=== PATIENT | male | born 1965 | race African-American/Black ===

== ENCOUNTER 2023-02-26 21:20 | Inpatient (IN) | payer OTHER ==
[~2023-02-26] VITALS: Ht 177.8 cm; Wt 81.2 kg
[2023-02-26 22:05] LABS: Basophils # (auto) 0 10 ^3/uL (0-0.2); Basophils % (auto) 0.5 % (0.0-2.0); Eosinophils # (auto) 0.2 10 ^3/uL (0-0.8); Lymphocytes # (auto) 1.4 10 ^3/uL (0.4-5.4); Mean Corpuscular Hemoglobin 26.6 pg (28.0-32.0); Neutrophils # (auto) 3.9 10 ^3/uL (1.6-8.6); Nucleated Red Blood Cells % 0.2 %
[2023-02-26 22:07] LABS: Eosinophils % (auto) 3.8 % (0.0-7.0); Hematocrit 44.2 % (41.0-53.0); Hemoglobin 14.3 g/dL (13.5-17.5); Lymphocytes % (auto) 22.1 % (10.0-50.0); Mean Corpuscular Hgb Conc. 32.4 g/dL (32.0-36.0); Mean Corpuscular Volume 82.2 fL (80.0-100.0); Monocytes # (auto) 0.8 10 ^3/uL (0-1.3); Monocytes % (auto) 12.1 % (0.0-12.0); Neutrophils % (auto) 61.5 % (37.0-80.0); Red Blood Cells 5.38 10^6/uL (4.5-5.90); White Blood Cell 6.4 10^3/uL (4.4-10.8)
[2023-02-26 22:12] LABS: INR 1.1 (0.9-1.15); Partial Thromboplastin Time 28.2 SEC (24.5-34.5); Prothrombin Time 11.5 sec (9.3-11.8)
[2023-02-26] MEDS ORDERED: MORPHINE SULFATE 4 MG/ML SYR/VIAL IV ONE (22:30)
[2023-02-26] MEDS ORDERED: ONDANSETRON HCL 4 MG/2 ML VIAL IV ONE (22:30)
[2023-02-26 23:12] LABS: Urine Bacteria NONE SEEN /hpf (None Seen); Urine Blood TRACE /uL (Negative); Urine Clarity Clear (Clear); Urine Color Yellow (Yellow); Urine Protein, UAD 1+ (Negative); Urine Specific Gravity 1.017 (1.001-1.035); Urine Urobilinogen Normal (Negative); Urine WBC <1 /hpf (0 - 3)
[2023-02-27] MEDS ORDERED: hydrALAZINE HCL 20 MG/ML VL IV ONE
[2023-02-27] MEDS ORDERED: MORPHINE SULFATE 4 MG/ML SYR/VIAL IV ONE
[2023-02-27] MEDS ORDERED: HEPARIN SODIUM (PORCINE) 5000 UNITS/ML 1ML VIAL IV ONE ×2 (03:30)
[2023-02-27] MEDS ORDERED: ASPirin 325 MG TAB PO ONE (03:30)
[2023-02-27] MEDS ORDERED: METOPROLOL TARTRATE 1MG/1ML-5ML VIAL IV ONE (03:30)
[2023-02-27] MEDS ORDERED: HEPARIN DRIP/D5W 100UNITS/ML 250 ML IV SCH (03:30)
[2023-02-27 03:45] LABS: Alanine Aminotransferase 25 U/L (7-40); Albumin 4.4 g/dL (3.2-4.8); Alkaline Phosphatase 72 U/L (46-116); Anion Gap 16 (5-15); Aspartate Aminotransferase 34 U/L (13-40); BUN/Creatinine Ratio 15.9 (10.0-20.0); Bilirubin, Total 0.3 mg/dL (0.2-1.0); Blood Urea Nitrogen 37 mg/dL (9-23); Calcium 9.9 mg/dL (8.7-10.4); Carbon Dioxide 15 mmol/L (20-30); Chloride 108 mmol/L (98-107); Glucose 99 mg/dL (74-106); Sodium 139 mmol/L (136-145); Total Protein 8.7 g/dL (5.7-8.2)
[2023-02-27] MEDS ORDERED: ONDANSETRON HCL 4 MG/2 ML VIAL IV PRN (03:49)
[2023-02-27 04:04] LABS: Eosinophils # (auto) 0.2 10 ^3/uL (0-0.8); Hemoglobin 12.8 g/dL (13.5-17.5); Lymphocytes # (auto) 1.4 10 ^3/uL (0.4-5.4); Mean Corpuscular Volume 81.2 fL (80.0-100.0); Neutrophils # (auto) 3.1 10 ^3/uL (1.6-8.6); Red Cell Distribution Width 13.7 % (11.8-14.3)
[2023-02-27 04:10] LABS: Basophils # (auto) 0 10 ^3/uL (0-0.2); Basophils % (auto) 0.8 % (0.0-2.0); Eosinophils % (auto) 4.2 % (0.0-7.0); Hematocrit 38.5 % (41.0-53.0); Lymphocytes % (auto) 26.2 % (10.0-50.0); Mean Corpuscular Hemoglobin 26.9 pg (28.0-32.0); Mean Corpuscular Hgb Conc. 33.1 g/dL (32.0-36.0); Monocytes # (auto) 0.7 10 ^3/uL (0-1.3); Monocytes % (auto) 12.8 % (0.0-12.0); Nucleated Red Blood Cells % 0.3 %; Red Blood Cells 4.75 10^6/uL (4.5-5.90); White Blood Cell 5.5 10^3/uL (4.4-10.8)
[2023-02-27 05:05] LABS: INR 1.12 (0.9-1.15); Partial Thromboplastin Time 23.8 SEC (24.5-34.5); Prothrombin Time 11.7 sec (9.3-11.8)
[2023-02-27 09:00] VITALS: BP 159/78; PULSE 91; RESP 19; TEMP 98.3; O2SAT 100
[2023-02-27] MEDS: NITROGLYCERIN 0.4 MG SL TAB SL PRN ×3 (09:38→09:45)
[2023-02-27] MEDS: MORPHINE SULFATE INJ 2 MG/ml SYRG IV PRN ×2 (09:59→10:50)
[2023-02-27] MEDS: METOPROLOL TARTRATE 25 MG TAB PO SCH (10:00)
[2023-02-27] MEDS: ATORVASTATIN 20 MG TAB PO SCH (10:00)
[2023-02-27] MEDS ORDERED: SODIUM CHLORIDE 0.9% 1,000 ML IV ONE (11:00)
[2023-02-27] MEDS ORDERED: IOHEXOL 300 MG/ML 100ML BOTTLE IJ ONE (11:02)
[2023-02-27 11:49] LABS: Basophils # (auto) 0 10 ^3/uL (0-0.2); Mean Corpuscular Hgb Conc. 32.5 g/dL (32.0-36.0); Monocytes # (auto) 0.5 10 ^3/uL (0-1.3); Neutrophils # (auto) 2.6 10 ^3/uL (1.6-8.6)
[2023-02-27 11:52] VITALS: BP 158/97; PULSE 93; RESP 18; TEMP 98.7; O2SAT 100
[2023-02-27 11:53] LABS: Basophils % (auto) 0.5 % (0.0-2.0); Eosinophils # (auto) 0.2 10 ^3/uL (0-0.8); Eosinophils % (auto) 3.6 % (0.0-7.0); Lymphocytes % (auto) 22.8 % (10.0-50.0); Mean Corpuscular Hemoglobin 26.4 pg (28.0-32.0); Mean Corpuscular Volume 81.3 fL (80.0-100.0); Monocytes % (auto) 12.2 % (0.0-12.0); Neutrophils % (auto) 60.9 % (37.0-80.0); Nucleated Red Blood Cells % 0.2 %; Red Blood Cells 4.92 10^6/uL (4.5-5.90); Red Cell Distribution Width 13.8 % (11.8-14.3); White Blood Cell 4.2 10^3/uL (4.4-10.8)
[2023-02-27 11:54] VITALS: PULSE 93
[2023-02-27 11:55] LABS: INR 1.1 (0.9-1.15); Partial Thromboplastin Time 30.2 SEC (24.5-34.5); Prothrombin Time 11.5 sec (9.3-11.8)
[2023-02-27 12:00] VITALS: BP 136/91; PULSE 87; RESP 20; TEMP 98.9; O2SAT 97
[2023-02-27 12:08] LABS: Alanine Aminotransferase 21 U/L (7-40); Alkaline Phosphatase 64 U/L (46-116); Anion Gap 6 (5-15); Aspartate Aminotransferase 23 U/L (13-40); BUN/Creatinine Ratio 18.9 (10.0-20.0); Blood Urea Nitrogen 41 mg/dL (9-23); Calcium 9.2 mg/dL (8.7-10.4); Carbon Dioxide 24 mmol/L (20-30); Chloride 107 mmol/L (98-107); Glucose 114 mg/dL (74-106); Potassium 4.7 mmol/L (3.5-5.1); Sodium 137 mmol/L (136-145)
[2023-02-27 12:09] LABS: Bilirubin, Total 0.3 mg/dL (0.2-1.0); Total Protein 7.7 g/dL (5.7-8.2)
[2023-02-27] MEDS ORDERED: NITROGLYCERIN 0.4 MG SL TAB SL ONE (12:15)
[2023-02-27] MEDS ORDERED: MORPHINE SULFATE INJ 2 MG/ml SYRG IV ONE (12:15)
[2023-02-27] MEDS ORDERED: amLODIPine BESYLATE 5 MG TAB PO ONE (12:30)
[2023-02-27 12:38] LABS: Triglycerides 69 mg/dL (< 150)
[2023-02-27 12:39] LABS: LDL Cholesterol 94 mg/dL (< 100)
[2023-02-27 12:40] LABS: Cholesterol 136 mg/dL (< 200); HDL Cholesterol 26 mg/dL (40-59)
[2023-02-27] MEDS ORDERED: LIDOCAINE 2%HCL (LOCAL ANESTH.) INJ 20ML MDV ONE (12:56)
[2023-02-27] MEDS ORDERED: IODIXANOL 320MG/ML 100ML BTL IV ONE ×3 (12:56→13:25)
[2023-02-27] MEDS ORDERED: ANGIOMAX 250 MG VIAL IV ONE (13:07)
[2023-02-27] MEDS ORDERED: SODIUM CHL 0.9% 0 ML ONE (13:07)
[2023-02-27] MEDS ORDERED: VERAPAMIL 2.5MG/ML INJ 2ML VIAL IV ONE (13:16)
[2023-02-27] MEDS ORDERED: HEPARIN SODIUM (PORCINE) 5000 UNITS/ML 1ML VIAL ONE (13:18)
[2023-02-27] MEDS ORDERED: fentaNYL CITRATE 100 MCG/2 ML VL ONE (13:19)
[2023-02-27] MEDS ORDERED: diphenhdrAMINE HCL 50 MG/1 ML VL ONE (13:31)
[2023-02-27 19:30] VITALS: PULSE 90; PULSE 91; RESP 17; O2SAT 96
[2023-02-27 22:05] VITALS: BP 166/91; PULSE 83; RESP 16; TEMP 98.1; O2SAT 98
[2023-02-28] VITALS (7 sets, daily range): BP systolic 110–178; BP diastolic 56–100; PULSE 54–106; RESP 14–21; TEMP 97.8–99; O2SAT 96–99
[2023-02-28] MEDS: METOPROLOL TARTRATE 25 MG TAB PO SCH (09:03)
[2023-02-28] MEDS: ATORVASTATIN 20 MG TAB PO SCH (09:03)
[2023-02-28] MEDS ORDERED: amLODIPine BESYLATE 5 MG TAB PO SCH (10:00)
[2023-02-28] MEDS: NIFEdipine 10 MG CAP PO SCH ×2 (17:07→22:19)
[2023-02-28] MEDS ORDERED: NIFEdipine ER 30 MG TAB PO ONE (22:00)
== END 2023-03-01 00:30 | DRG 281 ==
LOC: EDBD 21:20 → ER 21:20 → EEVIPCON 21:20 → TELE 02-27 03:46 → TELE-CENTR 02-27 09:06 → TELE-WESTW 02-27 17:44
PROVIDERS: ADMIT Specialist; ATTEND Internal Medicine
PROC: B211YZZ Fluoroscopy of Multiple Coronary Arteries using Other Contrast (ICD-10-PCS; principal; 2023-02-27)
DX: I16.0 Hypertensive urgency (principal); I21.A1 Myocardial infarction type 2; N17.9 Acute kidney failure, unspecified; N18.9 Chronic kidney disease, unspecified; F20.9 Schizophrenia, unspecified; I12.9 Hypertensive chronic kidney disease with stage 1 through stage 4 chronic kidney disease, or unspecified chronic kidney disease; Z82.49 Family history of ischemic heart disease and other diseases of the circulatory system; Z87.891 Personal history of nicotine dependence; Z86.73 Personal history of transient ischemic attack (TIA), and cerebral infarction without residual deficits; I25.2 Old myocardial infarction; Z98.61 Coronary angioplasty status
CPT/HCPCS: 36415; 71045; 76775; 80053; 80061; 81001; 83036; 83735; 83880; 84443; 84484; 85025; 85610; 85730; 86850; 86900; 86901; 93005; 93306; 93454; 96365; 96375; 99152; 99291; G0378; J2405; Q9967